=== PATIENT | male | born 1940 | race Two or more races ===

== ENCOUNTER 2018-07-04 04:28 | Inpatient (IN) | payer OTHER ==
[~2018-07-04] VITALS: Ht 160 cm; Wt 77.1 kg
[~2018-07-04 04:28] MED LIST: COUMADIN2.5 MG PO; GLIMEPIRIDE1 MG PO; LIPITOR20 MG PO; METOPROLOL SUCC25 MG PO
--- NOTE | 2018-07-04 05:08 | NUR ---
SE RECIBE PTE ALERTA Y ORIENTADO POR MATEO. PTE REFIERE PRESENTAR TOS, CONGESTION NASAL, FIEBRE Y DIFICULTAD RESPIRATORIA DESDE ASHUTOSH. SE LE REALIZA A PTE EKG Y SE LE PRESENTA A DRA. HOBSON.
--- NOTE | 2018-07-04 05:13 | NUR ---
PACIENTE ALERTA Y ORIENTADO POR MATEO ESFERAS. MS. HERNANDEZ ORIENTA A PACIENTE SOBRE PROCEDIMEINTO Y TX, REFIERE ENTENDER. SE EXTRAE MUESTRAS DE LABORATORIO CON MEDIDAS ASEPTICAS Y SE ADMINISTRA MEDICAMENTOS DANIEL ORDEN MEDICA. SE NOTIFCIA A TERAPISTA ABG'S PENDIENTE.
--- NOTE | 2018-07-04 06:39 | NUR ---
0600AM SE RECIBE PACIENTE MASCULINO DE 77 ANOS A LA UNIDAD DE CRITICO ALERTA Y ORIENTADO X3, SE COLOCA EN CAMA CON BARANDAS ELEVADAS Y CABEZERA A 45 GRADOS. SE CONECTA A MONITOR CARDIACO CON OXIMETRIA. AL MOMENTO TIENE MICAELA NON REABREATHING AL 100%, NO CIANOSIS, SIBILACIA BILATERAL EN LA EXALACION. SE OBSERVA AREA DE VENOPUNCION EN BRAZO STEPHANIE PATENTE Y LUCIE DE EDEMA EN SALINE LOCK. LEVE EDEMA EN AREA DE LOS TOBILLOS. SE ORIENTA AL PACIENTE Y FAMILIARES SOBRE NORMAS DE LA UNIDAD Y TRATAMIENTO MEDICO, SE MANTIENE BAJO OBSERVACION.
--- NOTE | 2018-07-04 07:26 | NUR ---
SE RECIBE PTE ALERTA Y ORIENTADO EN LAS 3 ESFERAS EN POSICION SEMI-SENTADO EN CAMA CON BARANDAS ELEVADAS POR SEGURIDAD EN LA UNIDAD DE ICU 2.CONECTADO A MONITOR CARDIACO Y OXIMETRIA DE PULSO, ASISTIDO POR MICAELA NON-REBREATHING. H/L, EN BRAZO DERECHO, EL CUAL SE ENCUENTRA LUCIE DE EDEMA Y ERITEMA. SE WILLIAM A PTE EN CAMA CON BARANDAS ELEVADAS POR SEGURIDAD Y SE MANTIENE EN OBSERVACION POR CAMBIOS EN CONDICION MEDICA.
== END 2018-07-16 11:03 | disposition home or self-care (01) | DRG 208 ==
LOC: ER 04:28 → EDBD 04:31 → ER 04:31 → SURH 11:49 → ICU 11:49 → SEC-K 12:10 → ICU-2 12:18 → ICU 14:07 → MEDI 07-14 16:01
PROVIDERS: ADMIT Internal Medicine
PROC: BW24ZZZ Computerized Tomography (CT Scan) of Chest and Abdomen (ICD-10-PCS; 2018-07-04)
PROC: 8E0ZXY6 Isolation (ICD-10-PCS; 2018-07-04)
PROC: 5A1945Z Respiratory Ventilation, 24-96 Consecutive Hours (ICD-10-PCS; principal; 2018-07-06)
PROC: 0BH17EZ Insertion of Endotracheal Airway into Trachea, Via Natural or Artificial Opening (ICD-10-PCS; 2018-07-06)
PROC: 4A033R1 Measurement of Arterial Saturation, Peripheral, Percutaneous Approach (ICD-10-PCS; 2018-07-06)
PROC: 3E0F7GC Introduction of Other Therapeutic Substance into Respiratory Tract, Via Natural or Artificial Opening (ICD-10-PCS; 2018-07-06)
PROC: 02HV33Z Insertion of Infusion Device into Superior Vena Cava, Percutaneous Approach (ICD-10-PCS; 2018-07-06)
PROC: 4A12X4Z Monitoring of Cardiac Electrical Activity, External Approach (ICD-10-PCS; 2018-07-06)
PROC: 0T9B70Z Drainage of Bladder with Drainage Device, Via Natural or Artificial Opening (ICD-10-PCS; 2018-07-06)
PROC: B246ZZZ Ultrasonography of Right and Left Heart (ICD-10-PCS; 2018-07-09)
DX: J96.01 Acute respiratory failure with hypoxia (principal); I50.31 Acute diastolic (congestive) heart failure; J10.08 Influenza due to other identified influenza virus with other specified pneumonia; D68.318 Other hemorrhagic disorder due to intrinsic circulating anticoagulants, antibodies, or inhibitors; E11.9 Type 2 diabetes mellitus without complications; Z79.4 Long term (current) use of insulin; Z95.0 Presence of cardiac pacemaker; Z95.4 Presence of other heart-valve replacement; Z79.01 Long term (current) use of anticoagulants; I11.0 Hypertensive heart disease with heart failure; J10.1 Influenza due to other identified influenza virus with other respiratory manifestations; E78.49 Other hyperlipidemia; J96.21 Acute and chronic respiratory failure with hypoxia; I70.0 Atherosclerosis of aorta; I25.10 Atherosclerotic heart disease of native coronary artery without angina pectoris

== ENCOUNTER 2018-07-20 08:55 | Emergency (ER) | payer OTHER ==
[~2018-07-20] VITALS: Ht 170.2 cm; Wt 72.6 kg
== END 2018-07-20 11:33 | disposition home or self-care (01) ==
LOC: ER 08:55
DX: J06.9 Acute upper respiratory infection, unspecified (principal); R06.02 Shortness of breath

== ENCOUNTER 2019-04-15 20:43 | Emergency (ER) | payer OTHER ==
[~2019-04-15] VITALS: Ht 170.2 cm; Wt 68.0 kg
== END 2019-04-15 23:50 | disposition home or self-care (01) ==
LOC: ER 20:43
DX: J45.998 Other asthma (principal); R06.02 Shortness of breath; R41.0 Disorientation, unspecified

== ENCOUNTER 2019-09-18 11:48 | Emergency (ER) | payer OTHER ==
[~2019-09-18] VITALS: Ht 170.2 cm; Wt 68.0 kg
== END 2019-09-18 18:13 | disposition home or self-care (01) ==
LOC: ER 11:48
DX: N39.0 Urinary tract infection, site not specified (principal); R31.0 Gross hematuria; T45.514A Poisoning by anticoagulants, undetermined, initial encounter; Y92.89 Other specified places as the place of occurrence of the external cause

== ENCOUNTER 2020-08-17 18:40 | Inpatient (IN) | payer OTHER ==
[~2020-08-17] VITALS: Ht 170.2 cm; Wt 70.3 kg
[2020-08-17] MEDS ORDERED: AMLODIPINE 10 MG. (19:21)
[2020-08-17] MEDS ORDERED: GLIMEPIRIDE2 M1 (19:22)
[2020-08-17] MEDS ORDERED: INTEGRA (19:22)
[2020-08-17] MEDS ORDERED: VYTORIN 10-201 EACH (19:23)
[2020-08-17] MEDS ORDERED: COZAAR50 MG (19:24)
[2020-08-17] MEDS ORDERED: ALTACE5 MG (19:25)
--- NOTE | 2020-08-17 19:26 | NUR ---
PTE SE RECIBE POR DIFICULTAD RESPIRATORIA REFIERE PTE Y FAMILIAR.
--- NOTE | 2020-08-17 20:47 | NUR ---
SE RECIBE PTE MASCULINO ALERTA Y ORIENTADO X3,ACOMPANADO DE FAMILIAR,CONECTADO A MONITOR CADIACO JIMBO Y OXIMETRIA CONTINUA,SE KATHARINA MUESTRAS Y SE ENVIAN A LABORATORIO,SE CANALIZA Y COLOCA H/L PATENTE,REFIERE NO DOLOR,NI DIFICULTAD RESPIRATORIA,SE MANTIENE PTE EN OBSERVACIO POR CAMBIOS.
--- NOTE | 2020-08-17 23:18 | NUR ---
SE RECIBE MASCULINO ALERTA Y ORIENTADO POR MATEO ESFERAS, EN CAMA CON BARANDAS SEGURAS Y ELEVADAS. CONECTADAO A MONITOR CARDIACO CON OXIMETRIA DE PULSO. CANALIZADO EN ANTEBRAZO DERECHO CON AREA DE VENOPUNCION LUCIE DE EDEMA O ENROJECIMIENTO. ASISTIDO POR CANULA NASAL A 3L. PRESENTANDO TAQUIPNEA Y USO DE MUSCULOS ACCESORIOS. SE KATHARINA S/V Y SE NOTIFICA SATURACION DE 91% A DR. DAILY.
--- NOTE | 2020-08-18 07:55 | NUR ---
PACIENTE ALERTA Y ORIENTADO EN MODESTO MTAEO ESFERAS, PRESENTA BUEN PATRON RESPIRATORIO Y LUCIE DE DOLOR. CANALIZADO EN BRAZO RT X 2 RECIBIENDO TRIDIL A 3 ML/HR. CONECTADO A MONITOR CARDIACO. VM AL 50%. PENDIENTE EVALUACION DE MEDICINA INTERNA DR KAMALA HOLM POR CHF.
--- NOTE | 2020-08-18 08:44 | NUR ---
SE RECIBE PTE DEL AREA DE CHEST PAIN A LAS 8:15 AM, EL CUAL LLEGA EN CAMA, TRANSPORTADO POR PERSONAL DE TRANSPORTE Y RN A BARRY. SE UBICA PTE EN CAMA #1 CONECTADO A MONITOR CARDIACO Y OXIMETRIA DE PULSO. AL MOMENTO SE OBSERVA PTE CON VENTURY MASK AL 50%, MANTENIENDO BUEN PATRON RESPIRATORIO, SATURANDO 93%. PIEL TIBIA AL TACTO. IV PATENTES Y LIBRES DE EDEMA O ERITEMA CON 2 ANGIOS #18 EN MANO Y ANTEBRAZO RT, AL MOMENTO RECIBIENDO TRIDIL 50MG/250ML @3ML/HR. PTE SE ORIENTA A FAMILIAR Y PTE SOBRE PROTOCLOS DE LA UNIDAD, LO CUAL AMBOS REFIEREN ENTENDER. PTE PENDIENTE A CONSULTA CON DR KAMALA HOLM. SE MANTIENE BAJO OBSERVACION. MS LEWIS RE AJUSTA VENTURY MASK AL 50%, PTE SE MANTIENE SATURANDO 95%.
--- NOTE | 2020-08-18 11:33 | NUR ---
SE REALIZA FRANCISCO EN CAMA CON ASISTENCIA DE LAURO DELATORRE. SE MANTIENE CONECTADO A MONITOR CARDIACO Y OXIMETRIA DE PULSO, CON BARRANDAS ELEVADAS A NIVEL MAS BAJO.
[2020-08-21] MEDS ORDERED: INTEGRA CAPSUL1 EACH (15:27)
[2020-08-21] MEDS ORDERED: AMLODIPINE BESY10 MG (15:27)
[2020-08-28] MEDS ORDERED: LOSARTAN POTASS50 MG PO (14:38)
[2020-08-28] MEDS ORDERED: LIPITOR20 MG PO (14:38)
[2020-08-28] MEDS ORDERED: COUMADIN PO (14:38)
[2020-08-28] MEDS ORDERED: FAMOTIDINE20 MG PO (14:38)
[2020-08-28] MEDS ORDERED: AMLODIPINE BESYL5 MG PO (14:38)
[2020-08-28] MEDS ORDERED: INTEGRA PLUS C1 EACH PO (14:38)
[2020-08-28] MEDS ORDERED: ISOSORBIDE DINI20 MG PO (14:38)
== END 2020-08-28 16:00 | disposition home or self-care (01) | DRG 291 ==
LOC: ER 18:40 → ICU 08-18 11:47 → ICU-2 08-18 11:47 → ICU 08-19 00:37 → MEDI 08-22 22:56
PROVIDERS: ADMIT Internal Medicine; ATTEND Internal Medicine
PROC: B24BZZZ Ultrasonography of Heart with Aorta (ICD-10-PCS; 2020-08-18)
PROC: 3E0F7SF Introduction of Other Gas into Respiratory Tract, Via Natural or Artificial Opening (ICD-10-PCS; 2020-08-19)
PROC: 4A12X4Z Monitoring of Cardiac Electrical Activity, External Approach (ICD-10-PCS; principal; 2020-08-22)
DX: I11.0 Hypertensive heart disease with heart failure (principal); J18.9 Pneumonia, unspecified organism; N17.8 Other acute kidney failure; E87.0 Hyperosmolality and hypernatremia; I50.33 Acute on chronic diastolic (congestive) heart failure; Z79.01 Long term (current) use of anticoagulants; Z95.2 Presence of prosthetic heart valve; E86.0 Dehydration; E11.65 Type 2 diabetes mellitus with hyperglycemia; Z20.822 Contact with and (suspected) exposure to COVID-19; R31.9 Hematuria, unspecified; Z79.84 Long term (current) use of oral hypoglycemic drugs

== ENCOUNTER 2021-10-17 00:58 | Emergency (ER) | payer OTHER ==
[~2021-10-17] VITALS: Ht 172.7 cm; Wt 76.2 kg
[~2021-10-17 00:58] MED LIST changes: +ALTACE5 MG; +AMLODIPINE 10 MG.; +AMLODIPINE BESY10 MG; +AMLODIPINE BESYL5 MG PO; +COUMADIN PO; +COZAAR50 MG; +FAMOTIDINE20 MG PO; +GLIMEPIRIDE2 M1; +INTEGRA; +INTEGRA CAPSUL1 EACH; +INTEGRA PLUS C1 EACH PO; +ISOSORBIDE DINI20 MG PO; +LOSARTAN POTASS50 MG PO; +VYTORIN 10-201 EACH
== END 2021-10-17 07:23 ==
LOC: ER 00:58
DX: K06.8 Other specified disorders of gingiva and edentulous alveolar ridge (principal); E11.9 Type 2 diabetes mellitus without complications; Z79.84 Long term (current) use of oral hypoglycemic drugs; I10 Essential (primary) hypertension; Z95.2 Presence of prosthetic heart valve